=== PATIENT | female | born 1970 | race Caucasian/White ===

== ENCOUNTER 2016-11-23 18:01 | Emergency (ER) | payer OTHER ==
[~2016-11-23] VITALS: Ht 160 cm; Wt 94.0 kg
[2016-11-23 18:12] VITALS: BP 137/74
[2016-11-23] MEDS ORDERED: AZIT500T2 PO (18:31)
[2016-11-23] MEDS ORDERED: PRED20TA PO (18:31)
[2016-11-23] MEDS ORDERED: ALBU6.7H IH (18:31)
--- NOTE | 2016-11-23 18:31 | PHYS DOC ---
Past History Past Medical History: Diabetes Past Surgical History: Cholecystectomy, , Hysterectomy Smoking: Cigarettes Adult General Chief Complaint Chief Complaint: COUGH HPI HPI Patient is a 46 year old female who presents with cough. She has been coughing for one week. No vomiting. No fever. Daughter ill with similar symptoms as well. No recent travel. No chest pain. No leg pain or swelling. Review of Systems Review of Systems Constitutional: Denies fever or chills Eyes: Denies change in visual acuity, redness, or eye pain HENT Some nasal congestion but no sore throat Respiratory: see HPI Cardiovascular: No chest pain GI: Denies abdominal pain, nausea, vomiting, bloody stools or diarrhea : Denies dysuria or hematuria Musculoskeletal: Denies back pain or joint pain Integument: Denies rash or skin lesions Neurologic: Denies headache, focal weakness or sensory changes Physical Exam Physical Exam Constitutional: Well developed, well nourished, no acute distress, non-toxic appearance. HENT: Normocephalic, atraumatic, bilateral external ears normal, oropharynx moist, no oral exudates, nose normal. Eyes: PERRLA, EOMI, conjunctiva normal, no discharge. Neck: Normal range of motion, no tenderness, supple, no stridor. Cardiovascular:Heart rate regular rhythm, no murmur Lungs & Thorax: Coarse breath sounds with diminished air flow. Abdomen: Bowel sounds normal, soft, no tenderness, no masses, no pulsatile masses. Skin: Warm, dry, no erythema, no rash. Back: No tenderness, no CVA tenderness. Extremities: No tenderness, no cyanosis, no clubbing, ROM intact, no edema. Neurologic: Alert and oriented X 3, normal motor function, normal sensory function, no focal deficits noted. Psychologic: Affect normal, judgement normal, mood normal. Current Patient Data Vital Signs BP 137/74, P 91, sat 96%, T 98.3 Course & Med Decision Making Course & Med Decision Making patient evaluated. No risk factors for PE. She does smoke tobacco. Has had prior use of nebulized treatments; none at home now. Duoneb given here. Prednisone and Azithromax po. Given followup Juno Disclaimer Juno Disclaimer This chart was dictated in whole or in part using Voice Recognition software in a busy, high-work load, and often noisy Emergency Department environment. It may contain unintended and wholly unrecognized errors or omissions. Departure Departure: Impression: Primary Impression: Bronchitis Additional Impression: Bronchospasm, acute Disposition: 01 HOME, SELF-CARE Condition: GOOD Referrals: NYLA MORA DO (PCP) Scripts Albuterol Sulfate (PROVENTIL HFA INHALER) 6.7 Gm Hfa.aer.ad 1 PUFF IH PRN Q4HRS Y for FOR ASTHMA, #1 INHALER 0 Refills Prov: JACKIE DE LA TORRE MD 11/23/16 Prednisone (PREDNISONE) 20 Mg Tablet 1 TAB PO BID, #10 TAB Prov: JACKIE DE LA TORRE MD 11/23/16 Azithromycin (ZITHROMAX TRI-MARGAUX) 500 Mg Tablet 1 TAB PO DAILY, #3 TAB Prov: JACKIE DE LA TORRE MD 11/23/16 Problem Qualifiers JACKIE DE LA TORRE MD November 23, 2016 18:31
[2016-11-23] MEDS ORDERED: ALBUTEROL SULFATE 8GM INHALER. INH ONE (18:45)
[2016-11-23] MEDS ORDERED: IPRATRPIUM/ALBUTEROL 0.5/2.5MG 3 ML NEBU. NEB ONE (18:45)
== END 2016-11-23 18:40 | disposition home or self-care (01) ==
LOC: ER 18:01
DX: J20.9 Acute bronchitis, unspecified (principal); E11.9 Type 2 diabetes mellitus without complications; F17.210 Nicotine dependence, cigarettes, uncomplicated
CPT/HCPCS: 94640; 99284; J7613; J7620; 94664

== ENCOUNTER 2016-11-26 20:23 | Emergency (ER) | payer OTHER ==
[~2016-11-26] VITALS: Ht 160 cm; Wt 94.0 kg
[~2016-11-26 20:23] MED LIST: ALBU6.7H IH; AZIT500T2 PO; PRED20TA PO
[2016-11-26 20:41] VITALS: BP 123/76
--- NOTE | 2016-11-26 21:47 | EKG ---
[address] [address] Test Date: 2016-11-26 Test Time: 21:47:07 Pat Name: LUAN ANTONIO Department: Room: Gender: F Manganese Wheeler: : 1970 Requested By: HERB CANDELARIO Order Number: [id number] Reading MD: Measurements Intervals [place] Rate: 78 P: 0 OH: 146 QRS: 59 QRSD: 102 T: 41 QT: 380 QTc: 437 Interpretive Statements SINUS RHYTHM QRS(T) CONTOUR ABNORMALITY CONSIDER ANTEROLATERAL MYOCARDIAL DAMAGE CONSIDER INFERIOR MYOCARDIAL DAMAGE RI6.01 Unconfirmed report No previous ECG available for comparison
[2016-11-26 22:08] LABS: BASO % 0 % (0-3); EOS # 0.1 x10^3/uL (0.0-0.7); EOS % 1 % (0-3); HEMATOCRIT 37.7 % (36.0-47.0); HEMOGLOBIN 13.4 g/dL (12.0-15.5); LYMPH # 5.3 x10^3/uL (1.0-4.8); LYMPH % 50 % (24-48); MEAN CORPUSCULAR HEMOGLOBIN 32 pg (25-35); MEAN CORPUSCULAR HGB CONC 36 g/dL (31-37); MEAN CORPUSCULAR VOLUME 91 fL (79-100); MONO # 0.5 x10^3/uL (0.0-1.1); MONO % 5 % (0-9); NEUT # 4.6 x10^3uL (1.8-7.7); NEUT % 43 % (31-73); PLATELET COUNT 161 x10^3/uL (140-400); RED BLOOD COUNT 4.16 x10^6/uL (3.50-5.40); RED CELL DISTRIBUTION WIDTH 12.1 % (11.5-14.5); WHITE BLOOD COUNT 10.5 x10^3/uL (4.0-11.0)
[2016-11-26 22:15] LABS: CALCIUM 9.1 mg/dL (8.5-10.1); CREATININE 0.8 mg/dL (0.6-1.0); GFR 76.9; POTASSIUM 3.6 mmol/L (3.5-5.1)
--- NOTE | 2016-11-26 22:39 | PHYS DOC ---
Past History Past Medical History: Diabetes Past Surgical History: Cholecystectomy, , Hysterectomy Smoking: Cigarettes Alcohol Use: None Drug Use: None Adult General Chief Complaint Chief Complaint: ALLERGIC REACTION HPI HPI Patient is a 46 year old female who presents with tingling in her face & bilateral arms. She reports onset of symptoms yesterday. States she has pins & needles sensation to face & bilateral arms which has been constant, no associated pain or weakness or facial droop. She denies slurred speech, abnormal gait. Denies fevers/chills, chest pain, shortness of breath, lower extremity pain/swelling/numbness/weakness. She also reports bruising to her left upper arm, denies injury. She states she was seen here 3 days ago & given antibiotics & prednisone for bronchitis, completed antibiotics & discontinued prednisone because she thought it was causing her symptoms. She reports history of diabetes. Review of Systems Review of Systems Constitutional: Denies fever or chills Eyes: Denies change in visual acuity HENT: Denies nasal congestion or sore throat Respiratory: Denies cough or shortness of breath Cardiovascular: Denies chest pain or edema GI: Denies abdominal pain, nausea, vomiting, or diarrhea Musculoskeletal: Denies back pain or joint pain Integument: Denies rash or skin lesions Neurologic: Denies headache, focal weakness, reports tingling sensation to face & arms. Allergies Allergies Allergies Coded Allergies Type Severity Reaction Last Updated Verified No Known Drug Allergies 11/23/16 No Physical Exam Physical Exam Constitutional: Obese, no acute distress, non-toxic appearance. HENT: Normocephalic, atraumatic, bilateral external ears normal, oropharynx moist, nose normal. Eyes: PERRLA, EOMI, conjunctiva normal, no discharge. Neck: supple, no stridor. Cardiovascular: RRR, no murmurs, no edema. Lungs & Thorax: LCTAB, no wheezing, no respiratory distress. Abdomen: soft, nontender, nondistended. Skin: Warm, dry, no erythema, no rash. ecchymosis to left upper arm, no bony tenderness, distally NV intact. Back: No tenderness. Extremities: No tenderness, no edema. Neurologic: Alert and oriented X 3, CN2-12 grossly intact, symmetric strength/ sensation to UE & LE, very slight alteration of sensation to light touch bilaterally to arms & face. Psychologic: Affect normal, judgement normal, mood normal. Current Patient Data Vital Signs Vital Signs Date Time Temp Pulse Resp B/P (MAP) Pulse Ox O2 Delivery O2 Flow Rate FiO2 11/26/16 20:41 98.5 89 20 97 Room Air Lab Results Laboratory Tests Test 11/26/16 21:52 White Blood Count 10.5 x10^3/uL (4.0-11.0) Red Blood Count 4.16 x10^6/uL (3.50-5.40) Hemoglobin 13.4 g/dL (12.0-15.5) Hematocrit 37.7 % (36.0-47.0) Mean Corpuscular Volume 91 fL (79-100) Mean Corpuscular Hemoglobin 32 pg (25-35) Mean Corpuscular Hemoglobin Concent 36 g/dL (31-37) Red Cell Distribution Width 12.1 % (11.5-14.5) Platelet Count 161 x10^3/uL (140-400) Neutrophils (%) (Auto) 43 % (31-73) Lymphocytes (%) (Auto) 50 % (24-48) H Monocytes (%) (Auto) 5 % (0-9) Eosinophils (%) (Auto) 1 % (0-3) Basophils (%) (Auto) 0 % (0-3) Neutrophils # (Auto) 4.6 x10^3uL (1.8-7.7) Lymphocytes # (Auto) 5.3 x10^3/uL (1.0-4.8) H Monocytes # (Auto) 0.5 x10^3/uL (0.0-1.1) Eosinophils # (Auto) 0.1 x10^3/uL (0.0-0.7) Basophils # (Auto) 0.0 x10^3/uL (0.0-0.2) Sodium Level 141 mmol/L (136-145) Potassium Level 3.6 mmol/L (3.5-5.1) Chloride Level 103 mmol/L (98-107) Carbon Dioxide Level 29 mmol/L (21-32) Anion Gap 9 (6-14) Blood Urea Nitrogen 13 mg/dL (7-20) Creatinine 0.8 mg/dL (0.6-1.0) Estimated GFR (Cockcroft-Gault) 76.9 Glucose Level 109 mg/dL (70-99) H Calcium Level 9.1 mg/dL (8.5-10.1) Troponin I Quantitative < 0.017 ng/mL (0-0.055) EKG EKG interpreted by me: NSR rate 78, no acute St/T wave changes, normal intervals, no ectopy.[] Radiology/Procedures Radiology/Procedures [] Course & Med Decision Making Course & Med Decision Making Pertinent Labs and Imaging studies reviewed. (See chart for details) Patient presents with tingling to the face and hands. No unilateral symptoms, very mild change in sensation. No weakness on exam and no facial droop. Obtained labs, no abnormalities identified. This does not seem consistent with stroke or cardiac disease. I also cannot say that this is definitely allergic reaction. Would not recommend any specific changes at this time. I believe her bruising is due to a injury that is not remembered. She already has appointment with her primary care physician on Monday which is in 2 days. I encouraged her to keep that appointment. She should return to the emergency department for worsening unilateral numbness or weakness, slurred speech, ataxia, chest pain, shortness of breath, any otherwise worsening condition. She is discharged home in stable condition. [] Dragon Disclaimer Dragon Disclaimer This chart was dictated in whole or in part using Voice Recognition software in a busy, high-work load, and often noisy Emergency Department environment. It may contain unintended and wholly unrecognized errors or omissions. Departure Departure: Impression: Primary Impression: Paresthesia Disposition: 01 HOME, SELF-CARE Condition: STABLE Referrals: NYLA MORA DO (PCP) Patient Instructions: Paresthesia, [id number] Additional Instructions: You were seen in the emergency department today for tingling in your hands. Your tests here didn't show a specific abnormality. Please keep follow up with your doctor on Monday. Come back for weakness on 1 side of your body, abnormal walking or talking, severe chest pain, any otherwise worsening condition. HERB CANDELARIO MD November 26, 2016 22:39
== END 2016-11-26 22:42 | disposition home or self-care (01) ==
LOC: ER 20:23
DX: R20.9 Unspecified disturbances of skin sensation (principal); E11.9 Type 2 diabetes mellitus without complications; F17.210 Nicotine dependence, cigarettes, uncomplicated
CPT/HCPCS: 36415; 80048; 84484; 85027; 93005; 99285-25

== ENCOUNTER 2017-12-12 09:58 | Emergency (ER) | payer OTHER ==
[~2017-12-12] VITALS: Ht 160 cm; Wt 95.3 kg
[2017-12-12] MEDS ORDERED: IV NORMAL SALINE 1,000ML 1,000 ML IV ONE (10:15)
--- NOTE | 2017-12-12 10:23 | PHYS DOC ---
Past History Past Medical History: Diabetes Past Surgical History: Cholecystectomy, , Hysterectomy Smoking: Cigarettes Alcohol Use: None Drug Use: None Adult General Chief Complaint Chief Complaint: COUGH HPI HPI 47-year-old female presents with 9 day history of cough. The patient was seen in another emergency room and given amoxicillin. She is continuing to take this. She was also taking a codeine based cough syrup but it made her break out so she is not taking that. Patient presents today because the cough seems to be worse and she has had an episode of vomiting. She states it feels like it is harder to breathe. She denies fever or chills. She has been eating and drinking normally. She was a smoker for greater than 20 pack years. Review of Systems Review of Systems Constitutional: Denies fever or chills [] Eyes: Denies change in visual acuity, redness, or eye pain [] HENT: Denies nasal congestion or sore throat [] Respiratory: Cough with shortness of breath [] Cardiovascular: No additional information not addressed in HPI [] GI: Denies abdominal pain, nausea, vomiting, bloody stools or diarrhea [] : Denies dysuria or hematuria [] Musculoskeletal: Denies back pain or joint pain [] Integument: Denies rash or skin lesions [] Neurologic: Denies headache, focal weakness or sensory changes [] Endocrine: Denies polyuria or polydipsia [] All other systems were reviewed and found to be within normal limits, except as documented in this note. Current Medications Current Medications Current Medications Medications (Trade) Dose Ordered Sig/Akash Start Time Stop Time Status Last Admin Dose Admin Prochlorperazine Edisylate (Compazine) 10 mg 1X ONCE 12/12/17 10:15 12/12/17 10:16 UNV Sodium Chloride 1,000 ml @ 1,000 mls/hr 1X ONCE 12/12/17 10:15 12/12/17 11:14 UNV Allergies Allergies Allergies Coded Allergies Type Severity Reaction Last Updated Verified No Known Drug Allergies 11/23/16 No Physical Exam Physical Exam Constitutional: Well developed, well nourished, no acute distress, non-toxic appearance. [] HENT: Normocephalic, atraumatic, bilateral external ears normal, oropharynx moist, no oral exudates, nose normal. [] Eyes: PERRLA, EOMI, conjunctiva normal, no discharge. [] Neck: Normal range of motion, no tenderness, supple, no stridor. [] Cardiovascular:Heart rate regular rhythm, no murmur [] Lungs & Thorax: Bilateral breath sounds clear to auscultation, wet sounding cough[] Abdomen: Bowel sounds normal, soft, no tenderness, no masses, no pulsatile masses. [] Skin: Warm, dry, no erythema, no rash. [] Back: No tenderness, no CVA tenderness. [] Extremities: No tenderness, no cyanosis, no clubbing, ROM intact, no edema. [] Neurologic: Alert and oriented X 3, normal motor function, normal sensory function, no focal deficits noted. [] Psychologic: Affect normal, judgement normal, mood normal. [] EKG EKG [] Radiology/Procedures Radiology/Procedures PA and lateral chest radiograph. History: Cough for one week. Comparison: None. Findings: Cardiomediastinal silhouette is within normal limits for size. Bilateral lung olivo appear clear without evidence of infiltrate, effusion, or pneumothorax. Impression: 1. No acute cardiopulmonary process. Electronically signed by: Mahesh Dee MD (12/12/2017 10:58 AM) [facility][] Course & Med Decision Making Course & Med Decision Making Pertinent Labs and Imaging studies reviewed. (See chart for details) The patient's chest x-ray is negative for pneumonia. Lab results are unremarkable and arguing against bacterial infection. I believe the patient has a viral bronchitis exacerbated by her smoking history. I'll prescribe an albuterol MDI and Tessalon Perles. [] Dragon Disclaimer Dragon Disclaimer This electronic medical record was generated, in whole or in part, using a voice recognition dictation system. Departure Departure: Referrals: NYLA MORA DO (PCP) Scripts Benzonatate (TESSALON PERLE) 100 Mg Capsule 1 CAP PO TID, #30 CAP Prov: KRISTY PENA DO 12/12/17 Albuterol Sulfate (VENTOLIN HFA INHALER) 18 Gm Hfa.aer.ad 2 PUFF IH PRN Q4HRS PRN for SHORTNESS OF BREATH, #1 INHALER 0 Refills Prov: KRISTY PENA DO 12/12/17 KRISTY PENA DO Dec 12, 2017 10:23
[2017-12-12 10:41] LABS: BASO # 0.1 x10^3/uL (0.0-0.2); BASO % 1 % (0-3); EOS # 0.2 x10^3/uL (0.0-0.7); EOS % 2 % (0-3); HEMATOCRIT 37.8 % (36.0-47.0); HEMOGLOBIN 13.3 g/dL (12.0-15.5); LYMPH % 28 % (24-48); MEAN CORPUSCULAR HEMOGLOBIN 32 pg (25-35); MEAN CORPUSCULAR HGB CONC 35 g/dL (31-37); MEAN CORPUSCULAR VOLUME 91 fL (79-100); MONO # 0.7 x10^3/uL (0.0-1.1); MONO % 7 % (0-9); NEUT # 6.8 x10^3uL (1.8-7.7); NEUT % 63 % (31-73); PLATELET COUNT 204 x10^3/uL (140-400); RED BLOOD COUNT 4.16 x10^6/uL (3.50-5.40); RED CELL DISTRIBUTION WIDTH 12.3 % (11.5-14.5); WHITE BLOOD COUNT 10.9 x10^3/uL (4.0-11.0)
[2017-12-12] MEDS ORDERED: PROCHLORPERAZINE 10 MG/2 ML VIAL. IV ONE (10:45)
[2017-12-12 10:47] LABS: ALBUMIN 3.6 g/dL (3.4-5.0); ALBUMIN/GLOBULIN RATIO 1.1 (1.0-1.7); CALCIUM 8.4 mg/dL (8.5-10.1); CREATININE 0.7 mg/dL (0.6-1.0); GFR 89.3; POTASSIUM 4.1 mmol/L (3.5-5.1); TOTAL BILIRUBIN 0.3 mg/dL (0.2-1.0); TOTAL PROTEIN 6.9 g/dL (6.4-8.2)
--- NOTE | 2017-12-12 11:01 | RAD ---
PA and lateral chest radiograph. History: Cough for one week. Comparison: None. Findings: Cardiomediastinal silhouette is within normal limits for size. Bilateral lung olivo appear clear without evidence of infiltrate, effusion, or pneumothorax. Impression: 1. No acute cardiopulmonary process. Electronically signed by: Mahesh Dee MD (12/12/2017 10:58 AM) [facility]
[2017-12-12] MEDS ORDERED: ALBU18HF IH (11:10)
[2017-12-12] MEDS ORDERED: BENZ100C PO (11:10)
[2017-12-12 11:25] VITALS: BP 129/72
== END 2017-12-12 11:20 | disposition home or self-care (01) ==
LOC: ER 09:58
DX: J20.8 Acute bronchitis due to other specified organisms (principal); R11.10 Vomiting, unspecified; E11.9 Type 2 diabetes mellitus without complications; F17.210 Nicotine dependence, cigarettes, uncomplicated
CPT/HCPCS: 36415; 71046; 80053; 83690; 85025; 96361; 96374; 99285; J0780; J7030

== ENCOUNTER 2017-12-24 18:35 | Emergency (ER) | payer OTHER ==
[~2017-12-24] VITALS: Ht 160 cm; Wt 94.0 kg
[~2017-12-24 18:35] MED LIST changes: +ALBU18HF IH; +BENZ100C PO
[2017-12-24 18:49] VITALS: BP 129/72
[2017-12-24] MEDS ORDERED: GUAI-40 PO (19:11)
[2017-12-24] MEDS ORDERED: LEVO500T59 PO (19:11)
[2017-12-24] MEDS ORDERED: FLUT9.9S NS (19:11)
--- NOTE | 2017-12-24 19:19 | ED.ADGEN ---
Past History Past Medical History: Diabetes, Hypertension Past Surgical History: Cholecystectomy, , Hysterectomy Smoking: Cigarettes Alcohol Use: None Drug Use: None Adult General HPI HPI Patient is a 47 year old female who presents with viral and respiratory symptoms. Patient states she has been ill over the last month with intermittent cough and congestion symptoms. She has been evaluated several times and treated for bronchitis. She was previously treated with amoxicillin. She has not still taking this medication. Today she presents complaining of persistent cough with some congestion and bilateral ear discomfort. She also had some onset of redness in the bilateral eyes over the last 24 hours. She had some drainage from the eyes and a work matted shut when she awoke this morning. She has a coworker who has had very similar symptoms. Review of Systems Review of Systems Constitutional: Denies fever Eyes: Denies change in visual acuity HENT: nasal congestion and ST Respiratory: Denies shortness of breath Cardiovascular: No additional information GI: Denies abdominal pain, nausea, vomiting : Denies dysuria Musculoskeletal: Denies back pain Integument: Denies rash or skin lesions Neurologic: Denies headache All other systems were reviewed and found to be within normal limits, except as documented in this note. Current Medications Current Medications Current Medications Medications (Trade) Dose Ordered Sig/Akash Start Time Stop Time Status Last Admin Dose Admin Levofloxacin (Levaquin) 500 mg 1X ONCE 12/24/17 19:30 12/24/17 19:31 Polymyxin/ Trimethoprim Sulfate (Polytrim) 1 drop 1X ONCE 12/24/17 19:30 12/24/17 19:31 Allergies Allergies Allergies Coded Allergies Type Severity Reaction Last Updated Verified codeine Allergy Intermediate 12/12/17 Yes Physical Exam Physical Exam Constitutional: Well developed, well nourished, no acute distress, non-toxic appearance. HENT: Normocephalic, atraumatic, tympanic membranes are dull and bulging. Nares are congested. Turbinates are boggy. There is cobblestoning in the posterior oral pharynx but no injection or exudates, sinuses are nontender, Eyes: PERRLA, EOMI, conjunctiva are injected with clear drainage Neck: Normal range of motion, no LAD Cardiovascular:Heart rate regular rhythm, no murmur Lungs & Thorax: Bilateral breath sounds clear to auscultation Skin: Warm, dry, no erythema, no rash Neurologic: Alert and oriented X 3 Psychologic: Affect normal Current Patient Data Vital Signs Vital Signs Date Time Temp Pulse Resp B/P (MAP) Pulse Ox O2 Delivery O2 Flow Rate FiO2 12/24/17 18:49 98.3 86 16 98 Room Air EKG EKG [] Radiology/Procedures Radiology/Procedures [] Course & Med Decision Making Course & Med Decision Making Pertinent Labs and Imaging studies reviewed. (See chart for details) Patient's history and physical exam consistent with ongoing viral infection although she could've had some bacterial involvement. She was treated with amoxicillin already but this did not change her symptoms. She developed conjunctival irritation following treatment with that medication. She has no skin rashes. She has no mucosal lesions. Her posterior oral pharynx does not appear to be strep. Today, she will be treated with some convenience medications , Flonase and Mucinex D. She is placed on a short course of Levaquin. She is provided polymyxin eyedrops. She is advised to contact her primary care clinic for a follow-up appointment or return to the ER for any new or worsening symptoms. Final Impression Final Impression Conjuncititis Bronchitis Rhinitis Juno Disclaimer Juno Disclaimer This electronic medical record was generated, in whole or in part, using a voice recognition dictation system. FLORENTINO HAMMONDS DO Dec 24, 2017 19:19
[2017-12-24] MEDS ORDERED: POLYMYXIN/TRIMETHOPRIM OPHTH SOLUTION 10ML BOTTLE. OU ONE (19:30)
[2017-12-24] MEDS ORDERED: levoFLOXacin 500 MG TABLET PO ONE (19:30)
== END 2017-12-24 19:25 | disposition home or self-care (01) ==
LOC: ER 18:35
DX: J40 Bronchitis, not specified as acute or chronic (principal); J31.0 Chronic rhinitis; H10.9 Unspecified conjunctivitis; I10 Essential (primary) hypertension; E11.9 Type 2 diabetes mellitus without complications; F17.210 Nicotine dependence, cigarettes, uncomplicated; Z88.5 Allergy status to narcotic agent
CPT/HCPCS: 99283